=== PATIENT | female | born 1990 | race African-American/Black ===

== ENCOUNTER 2024-06-19 09:48 | Emergency (ER) | payer OTHER, SELFPAY ==
--- NOTE | ~2024-06-19 | XR_ITS ---
EXAMINATION: XR ankle LT min 3V DATE: 06/19/2024 10:37 INDICATION: Lateral left ankle pain post injury TECHNIQUE: Anteroposterior, oblique, mortise, and lateral views of the left ankle were obtained. COMPARISON: None. FINDINGS: Alignment is normal with nondisplaced fracture extending across the tip the lateral malleolus of the tibiotalar joint line. There is overlying soft tissues. No other fractures identified. Joint spaces a re well maintained. No ankle joint effusion. IMPRESSION: 1. Nondisplaced [place] type A fracture across the distal lateral malleolus. Reviewed, dictated and finalized at location A.
[2024-06-19 10:15] VITALS: BP 100/68; PULSE 78; RESP 16; TEMP 36.3; O2SAT 100
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
[2024-06-19 12:30] VITALS: BP 106/72; PULSE 74; RESP 16; TEMP 36.2; O2SAT 100
== END 2024-06-19 12:45 | disposition home or self-care (01) ==
PROVIDERS: Emergency Provider Physician Assistant
DX: S82.839A Other fracture of upper and lower end of unspecified fibula, initial encounter for closed fracture (principal); V17.4XXA Pedal cycle driver injured in collision with fixed or stationary object in traffic accident, initial encounter
CPT/HCPCS: 29515; 73610; 99284